=== PATIENT | female | born 1955 | race African-American/Black ===

== ENCOUNTER → 2019-03-30 | Outpatient (CLI) | payer OTHER | LOC: HYPER 09:00 | DX: I87.312 Chronic venous hypertension (idiopathic) with ulcer of left lower extremity (principal); L97.825 Non-pressure chronic ulcer of other part of left lower leg with muscle involvement without evidence of necrosis; M05.741 Rheumatoid arthritis with rheumatoid factor of right hand without organ or systems involvement; M05.742 Rheumatoid arthritis with rheumatoid factor of left hand without organ or systems involvement; M06.9 Rheumatoid arthritis, unspecified; E03.9 Hypothyroidism, unspecified; I10 Essential (primary) hypertension; R60.9 Edema, unspecified ==

== ENCOUNTER → 2019-04-13 | Outpatient (CLI) | payer OTHER | LOC: HYPER 09:45 | DX: I87.312 Chronic venous hypertension (idiopathic) with ulcer of left lower extremity (principal); L97.825 Non-pressure chronic ulcer of other part of left lower leg with muscle involvement without evidence of necrosis; I10 Essential (primary) hypertension; M06.9 Rheumatoid arthritis, unspecified; E03.9 Hypothyroidism, unspecified; M05.741 Rheumatoid arthritis with rheumatoid factor of right hand without organ or systems involvement; M05.742 Rheumatoid arthritis with rheumatoid factor of left hand without organ or systems involvement; G62.9 Polyneuropathy, unspecified; R60.9 Edema, unspecified ==

== ENCOUNTER → 2019-04-27 | Outpatient (CLI) | payer OTHER | LOC: HYPER 08:23 | DX: I87.312 Chronic venous hypertension (idiopathic) with ulcer of left lower extremity (principal); L97.828 Non-pressure chronic ulcer of other part of left lower leg with other specified severity; E03.9 Hypothyroidism, unspecified; M05.741 Rheumatoid arthritis with rheumatoid factor of right hand without organ or systems involvement; M05.742 Rheumatoid arthritis with rheumatoid factor of left hand without organ or systems involvement; M06.9 Rheumatoid arthritis, unspecified; R60.9 Edema, unspecified ==